=== PATIENT | female | born 1980 | race Caucasian/White ===

== ENCOUNTER 2016-11-16 10:33 | Emergency (ER) ==
[2016-11-16] MEDS ORDERED: ASPIRIN PO STA (10:40)
[2016-11-16] MEDS ORDERED: NITROGLYCERIN SL PRN (10:40)
[2016-11-16 11:01] LABS: MANUAL DIFF NEEDED? NO
[2016-11-16 11:08] LABS: BASO% 0.4 % (0.0-0.8); EOS# 0.12 X1000 (0.0-0.7); EOS% 1.6 % (0.0-10.0); HEMATOCRIT 41.1 % (37.0-47.0); HEMOGLOBIN 13.8 g/dL (12.0-16.0); IMM GRAN# 0.02 X1000 (0.0-0.04); IMM GRAN% 0.3 % (0.0-0.5); LYMPH# 2.17 X1000 (1.2-3.4); LYMPH% 28.3 % (20.5-51.1); MCH 30.3 PG (27-31); MCHC 33.6 g/dL (33-37); MCV 90.1 FL (81-99); MONO# 0.61 X1000 (0.11-0.59); MONO% 7.9 % (1.7-9.3); MPV 9.5 FL (7.4-10.4); NEUT% 61.5 % (42.2-75.2); PLT 261 X1000 (130-400); RBC 4.56 XMIL (4.2-5.4)
--- NOTE | 2016-11-16 11:31 | ED EKG INTERP ---
EKG Interpretation - EKG Time of EKG reading by physician:: 10:44 EKG Read and Signed by:: Malik Howard EKG Interpretation (*Must complete 3 of following elements*): Abnormal Rate: 70 Rhythm: NSR [place]: normal QRS: normal VT Interval: normal ST Wave: non-specific ST changes Attestation - Scribe Verification/Attestation Scribe:: Markel Rivera Acting as Scribe for:: Malik Howard Scribe documention review:: This chart was documented by a scribe and accurately reflects the service the provider performed and the decisions made by the provider. Physician Attestation - Physician Attestation I, the provider, attest to the following statement:: Malik Howard Physician documentation Attestation:: This documentation recorded by the scribe accurately reflects the service I personally performed and the decisions made by me.
[2016-11-16 11:32] VITALS: BP 130/90
[2016-11-16 11:34] LABS: AGAP 12; ALBUMIN 4.1 g/dL (3.5-5.0); ALKALINE PHOSPHATASE 53 U/L (32-104); BUN 10 mg/dL (8-22); CALCIUM 8.9 mg/dL (8.8-10.2); CHLORIDE 99 mmol/L (98-107); CK PROFILE 74 U/L (24-173); COSMO 272; GOT 15 U/L (10-30); GPT 14 U/L (10-36); MAGNESIUM 1.9 mg/dL (1.5-2.7); POTASSIUM 3.9 mmol/L (3.5-5.1); SODIUM 137 mmol/L (136-145); TCO2 26 mmol/L (25-35); TOTAL BILIRUBIN 0.38 mg/dL (0.20-1.00); TOTAL PROTEIN 7.1 g/dL (6.3-8.3)
[2016-11-16 11:43] LABS: INR 1.02; PROTIME 10.4 Seconds (9.2-11.7); PTT 25.6 Seconds (22.0-36.0)
--- NOTE | 2016-11-16 11:43 | Diag Imaging Result Document ---
PROCEDURE NAME: CHEST-2 VIEWS - 11/16/2016 CHEST X-RAY, 2 VIEWS: COMPARISON: None. FINDINGS: The lungs are normally expanded and clear. Heart size and mediastinal contours are normal. No pneumothorax or pleural effusion. IMPRESSION: Negative exam.
--- NOTE | 2016-11-16 11:48 | PROVIDER DOCUMENTATION ---
HPI-Chest Pain - General Chief Complaint: Chest Pain Stated Complaint: CP RADIATING TO BACK Time Seen by Provider: 11/16/16 11:27 Source: patient Allergies/Adverse Reactions: Patient Allergies Allergy/AdvReac Type Severity Reaction Status Date / Time Penicillins Allergy Unknown Unknown Verified 11/16/16 11:41 terbutaline sulfate * Allergy Unknown Unknown Verified 11/16/16 11:41 [From Brethine] amoxicillin [Amoxicillin] Allergy Unknown Verified 11/16/16 11:41 hydrocodone bitartrate * Allergy Unknown Verified 11/16/16 11:41 [From Lortab] morphine Allergy Unknown Verified 11/16/16 11:41 Home Medications: Home Medication List Medication Instructions Recorded Confirmed Last Taken Type No Home Medications 11/16/16 11/16/16 Unknown History - History of Present Illness-CP Nature of Presenting Problem: patient is a 36 y/o F that presents to the ER with chest pain ( substernal) that radiated to back. Began last PM at rest, tightness pain. Patient felt a lump in chest as well. Patient reports being anxious about it, pt feels better. Location: reports: substernal Chest Pain Radiation: reports: back Quality of Pain: reports: pressure, tightness Severity in ED: mild, moderate Onset/Duration: abrupt, last night (last 20 minutes) Timing: gone now Context/Activities at Onset: reports: rest Modifying Factors: improves with: nothing Associated Symptoms: reports: back pain, swelling/lump in chest. denies: diaphoresis, dizziness, fever/chills, nausea, shortness of breath, vomiting Nitro Today/Relief: no nitro taken today Aspirin Treatment Today: 325 mg x 1, provided by ED Prior Chest Pain/Cardiac Workup: reports: no prior chest pain Similar Symptoms Previously?: No Recently Seen Here or By Another Healthcare Provider: No Review of Systems - Adult - REVIEW OF SYSTEMS - ADULT Constitutional: denies: chills, fever Eyes: denies: decreased vision, blurred vision, double vision Ears, Nose, Mouth & Throat: denies: ear pain, sinus problem, throat pain, throat swelling Cardiovascular: reports: chest pain. denies: palpitations, syncope Respiratory: denies: cough, shortness of breath, wheezing Gastrointestinal: denies: abdominal pain, diarrhea, nausea, vomiting Genitourinary: reports: no symptoms reported Musculoskeletal: reports: back pain. denies: joint pain, neck pain Integumentary: reports: no symptoms reported Neurological: reports: no symptoms reported Psychiatric: reports: no symptoms reported Endocrine: reports: no symptoms reported Hematologic/Lymphatic: reports: no symptoms reported Allergic/Immunologic: reports: no symptoms reported All Other Systems: Reviewed and Negative Past History - Adult - PAST MEDICAL HISTORY-ADULT Review of Records: reports: Old Records Reviewed, Nursing Assessment Review, Medications Reviewed Respiratory: reports: asthma Psychiatric: reports: depression (post ) - PRIOR SURGERIES/PROCEDURES Surgical/Procedure History: reports: BTL, - IMMUNIZATION STATUS Childhood Immunizations: See Nurse Assessment Flu Vaccine: See Nurse Assessment - FAMILY HISTORY Family History: reviewed, not pertinent - SOCIAL HISTORY Smoking: cigarettes, less than 1 pack/day Living Situation: family Physical Exam-General - PHYSICAL EXAM-ADULT Initial Vital Signs Reviewed: Yes - CONSTITUTIONAL General Appearance: alert, anxious - EYES Eyes: PERRL/EOMI, pink conjunctivae - HEAD, EARS, NOSE, MOUTH & THROAT HENMT: normocephalic/atraumatic, moist mucous membranes, normal ENT inspection - NECK Neck: full range of motion, normal inspection. negative: lymphadenopathy - RESPIRATORY Respiratory: lungs clear, normal breath sounds, no respiratory distress, no accessory muscle use - CARDIOVASCULAR Cardiovascular: regular rate, rhythm, no edema, no murmur - GASTROINTESTINAL (ABDOMEN) Abdominal Exam: normal bowel sounds, non tender, soft, no organomegaly, no pulsatile mass - MUSCULOSKELETAL Extremity: normal range of motion, normal inspection, no pedal edema, no calf tenderness, normal capillary refill - SKIN Integumentary: normal color, warm/dry - NEUROLOGIC Neurologic: grossly normal, no motor/sensory deficits - PSYCHIATRIC Psych/Mental Status: normal thought content, normal thought process, oriented x 3, anxious Progress - PLAN OF CARE/RESULTS Progress/Plan/Lab Results: plan of care-labs, cxr, ekg, meds Vital Signs Temp Pulse Resp BP Pulse Ox 11/16/16 11:31 74 20 130/90 100 11/16/16 10:37 97.6 F 76 16 130/83 100 Penicillins Allergy (Unknown, Verified 11/16/16 11:41) Unknown terbutaline sulfate * [From Brethine] Allergy (Unknown, Verified 11/16/16 11:41) Unknown amoxicillin [Amoxicillin] Allergy (Verified 11/16/16 11:41) Unknown hydrocodone bitartrate * [From Lortab] Allergy (Verified 11/16/16 11:41) Unknown PATIENT STATES SHE CAN TAKE NORCO 5 BUT NOT NORCO 10 (IT MAKES HER HALLUCINATE ) morphine Allergy (Verified 11/16/16 11:41) Unknown No Home Medications 11/16/16 Laboratory 11/16/16 11/16/16 11/16/16 10:50 10:50 10:50 WBC RBC Hgb Hct MCV MCH MCHC RDW Std Deviation Plt Count MPV Immature Gran % (Auto) Neut % (Auto) Lymph % (Auto) Pepin % (Auto) Eos % (Auto) Baso % (Auto) Immature Gran # (Auto) Neut # (Auto) Lymph # (Auto) Pep[place] # (Auto) Eos # (Auto) Baso # (Auto) PT 10.4 INR 1.02 PTT (Actin FS) 25.6 Sodium Potassium Chloride Carbon Dioxide Anion Gap BUN Creatinine Estimated GFR/1.73 m2 BUN/Creatinine Ratio Glucose Calculated Osmolality Calcium Magnesium Total Bilirubin AST ALT Alkaline Phosphatase Creatine Kinase Troponin T < 0.010 [id number] Pept 29 Total Protein Albumin Globulin Albumin/Globulin Ratio 11/16/16 11/16/16 10:50 10:50 WBC 7.68 RBC 4.56 Hgb 13.8 Hct 41.1 MCV 90.1 MCH 30.3 MCHC 33.6 RDW Std Deviation 13.6 Plt Count 261 MPV 9.5 Immature Gran % (Auto) 0.3 Neut % (Auto) 61.5 Lymph % (Auto) 28.3 Pepin % (Auto) 7.9 Eos % (Auto) 1.6 Baso % (Auto) 0.4 Immature Gran # (Auto) 0.02 Neut # (Auto) 4.73 Lymph # (Auto) 2.17 Pepin # (Auto) 0.61 H Eos # (Auto) 0.12 Baso # (Auto) 0.03 PT INR PTT (Actin FS) Sodium 137 Potassium 3.9 Chloride 99 Carbon Dioxide 26 Anion Gap 12 BUN 10 Creatinine 0.7 Estimated GFR/1.73 m2 > 60 BUN/Creatinine Ratio 14 Glucose 87 Calculated Osmolality 272 Calcium 8.9 Magnesium 1.9 Total Bilirubin 0.38 AST 15 ALT 14 Alkaline Phosphatase 53 Creatine Kinase 74 Troponin T [id number] Pept Total Protein 7.1 Albumin 4.1 Globulin 3.0 Albumin/Globulin Ratio 1.4 Orders Category Date Time Status Cardiac Monitoring DIRECTED Care 11/16/16 10:40 Active Saline Loc NOW Care 11/16/16 10:40 Active CHEST-2 VIEWS [RAD] Stat Exams 11/16/16 10:40 Draft CBC WITH ELECTRONIC DIFF [HEME] Stat Lab 11/16/16 10:50 Completed CK PROFILE [SP CHEM] Stat Lab 11/16/16 10:50 Completed COMPREHENSIVE METABOLIC PANEL [CHEM] Stat Lab 11/16/16 10:50 Completed D-DIMER [CHEM] Stat Lab 11/16/16 10:50 Received MAGNESIUM [CHEM] Stat Lab 11/16/16 10:50 Completed PRO B-NATRIURETIC PEPTIDE Stat Lab 11/16/16 10:50 Received PROTIME WITH INR [COAG] Stat Lab 11/16/16 10:50 Received PTT [COAG] Stat Lab 11/16/16 10:50 Received TROPONIN T Stat Lab 11/16/16 10:50 Completed Aspirin Med 11/16/16 10:40 Discontinued 325 mg PO STAT STA Nitroglycerin Sl [Nitroglycerin] Med 11/16/16 10:40 Active 0.4 mg SL Q5M PRN PRN EKG [EKG] Stat Ther 11/16/16 10:40 Ordered pt will be d/c home f/u with cardiology, pt was clinically stable, understood instructions and results - XRAY 1 XRAY Study: Chest Impression: Normal XRAY Interpretation: negative Departure - Departure Time of Disposition Order: 11:44 DIAGNOSIS: Nonspecific chest pain Disposition: HOME 01 Certified Medical Emergency: Emergent Condition: Stable Additional Instructions: ED Follow Up Instructions: You have been treated by a care provider in the Emergency Department. These instructions are being provided to you so you can have an understanding of how to care for yourself upon discharge. Upon discharge from the Emergency Department, you are responsible for making arrangements for follow-up care by a physician of your choice. Take all prescribed medications as directed. Return to the Emergency Department immediately for any new or worsening symptoms. You may call the Physician Referral phone number at [phone] to obtain a list of Physicians who are taking new patients. Referrals: None,PCP [Primary Care Provider] - Jorge Angeles MD [STAFF PHYSICIAN] - Instructions: Nonspecific Chest Pain Attestation - Scribe Verification/Attestation Scribe:: Markel Rivera Acting as Scribe for:: Haroldo Vasquez Scribe documention review:: This chart was documented by a scribe and accurately reflects the service the provider performed and the decisions made by the provider. Physician Attestation - Physician Attestation I, the provider, attest to the following statement:: Haroldo Vasquez Physician documentation Attestation:: This documentation recorded by the scribe accurately reflects the service I personally performed and the decisions made by me.
--- NOTE | 2016-11-16 12:57 | EKG Report ---
Test Performed on : 11/16/2016 10:44:07 AM Test Reason : CP Blood Pressure : / mmHG Vent. Rate : 070 BPM Atrial Rate : 070 BPM P-R Int : 142 ms QRS Dur : 082 ms QT Int : 370 ms P-R-T Axes : 068 023 038 degrees QTc Int : 399 ms Normal sinus rhythm. Cannot rule out Anterior infarct , age undetermined Abnormal ECG No previous ECGs available Unconfirmed Result
== END 2016-11-16 11:52 | disposition home or self-care (01) ==
LOC: ED 10:33
DX: R07.89 Other chest pain (principal); R94.31 Abnormal electrocardiogram [ECG] [EKG]; M54.9 Dorsalgia, unspecified; R22.2 Localized swelling, mass and lump, trunk; F17.210 Nicotine dependence, cigarettes, uncomplicated
CPT/HCPCS: 36415; 71020; 80053; 82550; 83735; 83880; 84484; 85025; 85379; 85610; 85730; 93005; 99283